=== PATIENT | male | born 1965 | race Caucasian/White ===

== ENCOUNTER 2024-08-11 09:05 | Day surgery (SDC) | payer BC, SELFPAY ==
[2024-08-11 09:58] VITALS: BP 128/85; PULSE 70; RESP 12; TEMP 36.2; O2SAT 97
[2024-08-11] MEDS: LACTATED RINGERS 1,000 ML 42 ML IV (10:22)
--- NOTE | 2024-08-11 10:35 | PM.HP.1 ---
History of Present Illness History of Present Illness Date Patient Seen: 08/11/24 Time Patient Seen: 10:38 Chief complaint: Colonoscopy Narrative: Last scope was over 10 years ago. No symptoms or family history PFSH Medical History KANDACE (obstructive sleep apnea) Kidney stones (~1983) Hemorrhoid (~2003) Former tobacco use Obesity Pulmonary nodule Depression Mixed hyperlipidemia (~2009) Elevated blood pressure reading Surgical History Anesthesia [place] teeth removed History of cataract extraction Family History Father Diabetes mellitus History of heart disease Mental health problem Stroke Obesity Mother Hypertension Mental health problem Grandfather Hypertension Grandmother Hyperlipidemia Grandfather History of heart disease Stroke Grandmother Diabetes mellitus History of heart disease Hypertension Social History Smoking Status: Former smoker alcohol intake: current additional social history: OI for 1 yr, [address] acres in [place]. was here during covid. lives with and 12 yo. selling house in [place] consulting: environmental advocacy - [employer] alcohol 1-3 /week tobacco: quit in 2018 -- 35 pack years. hikes: 2 miles or more per day, rowing machine, bikes veggies every day. PSHX cataracts PMHX depression- [facility] for lung nodules -- GW thought he had cancer -- 2022 BMI - interested in GLP-1 high cholesterol: on statin MOM has HTN -- dad had CVA PGF had CVA MGF MN MU MN D - DM2 S - ? no FHX CA nodule depression 03/2024 Meds Home Medications and Allergies Home Medications Medication Instructions Recorded Confirmed Type sodium,potassium,mag sulfates 17.5 See Rx Instructions PO .COMPLEX 04/25/24 07/04/24 Rx gram-3.13 gram-1.6 gram oral soln #354 mL (Suprep Bowel Prep Kit) atorvastatin 20 mg tablet 20 mg PO DAILY for cholesterol. 05/29/24 08/11/24 Rx prevents heart attack and stroke #90 tabs bupropion HCl 150 mg 24 hr tablet, 150 mg PO QAM take with 300mg 06/16/24 08/11/24 Rx extended release tablet #90 tabs bupropion HCl 300 mg 24 hr tablet, 300 mg PO DAILY take with 150mg 06/16/24 07/04/24 Rx extended release tablet #90 tabs Allergies Allergy/AdvReac Type Severity Reaction Status Date / Time No Known Drug Allergies Allergy Verified 08/11/24 09:55 Review of Systems Review of Systems ROS: Yes All systems reviewed with the patient and are negative except as otherwise documented Exam Vital Signs (past 8 hours): - 08/11/24 09:58 Temperature 97.1 F L Pulse Rate 70 Respiratory Rate 12 Blood Pressure 128/85 Pulse Oximetry 97 Oxygen Delivery Method Room Air Oxygen Delivery Method Room Air Const General: cooperative, healthy appearing and comfortable HENKY Head: normocephalic and atraumatic Eyes Periorbital: periorbital findings normal Sclera: sclerae normal Neck Neck: trachea midline and No JVD Resp Effort & Inspection: normal respiratory effort and able to speak in complete sentences Cardio Rate: regular rate Rhythm: regular rhythm GI Palpation: soft and No tender Skin General: turgor normal and No atrophy Neuro General: patient alert, patient awake and patient oriented x3 Cognition: normal cognition Psych Mental Status: mental status grossly normal Affect: normal affect Judgment: judgment good Assessment & Plan Assessment & Plan narrative: Colon cancer screening [id number] with anesthesia Time-Based Coding :: [TOTAL MINUTES] spent with patient and on the chart (including review of chart, obtaining history, exam, reviewing outside data, placing orders, documenting exam and treatment plan, and counseling patient) on [DATE].
--- NOTE | 2024-08-11 10:41 | PM.OP.COLON ---
Operative Date/Time/Diagnoses Date of procedure: 08/11/24 Time of procedure: 10:41 Pre-op diagnosis: colon cancer screening Post-op diagnosis: same Procedure & Clinicians Study performed: colonoscopy with anesthesia Same procedure as scheduled: Yes Indications: colon cancer screening Surgeon: Sandy Waller Procedure Notes Procedure in detail: Preop diagnosis: Colon cancer screening Postop diagnosis: Same Operative procedure: Colonoscopy with anesthesia Surgeon: Mali Waller MD Findings: Large diverticuli of the descending colon. No polyps identified Procedure: Patient placed in lateral position. Rectal exam performed showing normal tone no masses. Colonoscope inserted into the rectum and advanced ileocecal valve with minimal difficulty. Insufflation extraction scope including retroflex had the above findings. Impression: Diverticulosis of the descending colon. No polyps identified. Plan: Repeat colonoscopy in 10 years unless otherwise indicated by change in clinical condition Findings: divertiulosis Specimen(s): none sent Complications: none Post-procedure Recommendations: Colonoscopy in 10 years Follow up: as needed Disposition: PACU
[2024-08-11 11:01] VITALS: BP 127/74; PULSE 76; RESP 13; TEMP 36.7; O2SAT 96
[2024-08-11 11:06] VITALS: BP 118/76; PULSE 71; RESP 12; O2SAT 96
[2024-08-11 11:11] VITALS: BP 121/73; PULSE 74; RESP 14; O2SAT 97
[2024-08-11 11:16] VITALS: BP 115/79; PULSE 73; RESP 16; TEMP 36.7; O2SAT 96
== END 2024-08-11 11:26 | disposition home or self-care (01) ==
PROVIDERS: PCP Family Medicine; Referring Provider Surgery; Visit Provider Surgery
PROC: 0DJD8ZZ Inspection of Lower Intestinal Tract, Via Natural or Artificial Opening Endoscopic (ICD-10-PCS; CPT 45378; principal; 2024-08-11 10:45)
DX: Z12.11 Encounter for screening for malignant neoplasm of colon (principal); K57.30 Diverticulosis of large intestine without perforation or abscess without bleeding
CPT/HCPCS: 45378; J2704

== ENCOUNTER → 2025-04-26 09:57 | Outpatient (CLI) | payer BC, SELFPAY ==
[2025-04-26 19:43] LABS: Hematocrit 34.9 % (41-53); Hemoglobin 11.6 g/dL (13.5-17.5); Mean Corpuscular HGB Conc 33.2 % (30-36); Mean Corpuscular Hemoglobin 34.4 PG (26-34); Mean Corpuscular Volume 103.8 fL (80-100); Platelet Count 178 X10^3/uL (150-400); Red Blood Cell Count 3.36 X10^6/uL (4.5-5.9)
[2025-04-26 19:55] LABS: Alanine Aminotransferase 28 IU/L (<50); Albumin 4.3 g/dL (3.5-5.0); Alkaline Phosphatase 73 U/L (38-126); Aspartate Aminotransferase 25 IU/L (17-59); BUN Creatinine Ratio 22.1 (6-22); Bilirubin Total 0.7 mg/dL (0.2-1.3); Blood Urea Nitrogen 17 mg/dL (9-20); Calcium 8.8 mg/dL (8.4-10.2); Carbon Dioxide 21 mmol/L (22-32); Chloride 106 mmol/L (98-107); Cholesterol 150 mg/dL (140-199); Estimated Glomerular Filt Rate > 60 mL/min (>60); Globulin 2.1 g/dL (1.7-4.1); Glucose 95 mg/dL (70-99); HDL Cholesterol 30 mg/dL (40-60); HEMOLYSIS < 15 (0-50); LDL Cholesterol Calculated 84 mg/dL (<100); Potassium 4.2 mmol/L (3.4-5.1); Sodium 137 mmol/L (137-145); Total Protein 6.4 g/dL (6.3-8.2); Triglycerides 180 mg/dL (35-150)
[2025-04-26 20:16] LABS: Add Manual Diff / Slide Review YES
[2025-04-26 20:36] LABS: Neutrophils Absolute Manual 1200 /uL (3000-5900); Total Cells Counted 100
[2025-04-26 20:37] LABS: Anisocytosis 1+; Macrocytosis 1+
[2025-04-26 20:38] LABS: Smudge Cells 2+
== END ==
PROVIDERS: PCP Family Medicine; Visit Provider Family Medicine
DX: E66.9 Obesity, unspecified (principal); I10 Essential (primary) hypertension; Z12.5 Encounter for screening for malignant neoplasm of prostate
CPT/HCPCS: 80053; 80061; 85007; 85025; G0103

== ENCOUNTER → 2025-05-01 08:37 | Outpatient (CLI) | payer BC, SELFPAY ==
[2025-05-01 19:04] LABS: Hematocrit 37.8 % (41-53); Hemoglobin 12.2 g/dL (13.5-17.5); Mean Corpuscular HGB Conc 32.4 % (30-36); Mean Corpuscular Hemoglobin 34.1 PG (26-34); Mean Corpuscular Volume 105.3 fL (80-100); Platelet Count 217 X10^3/uL (150-400); Red Blood Cell Count 3.59 X10^6/uL (4.5-5.9); Red Cell Distribution Width 14.9 % (11.6-14.8)
[2025-05-01 19:59] LABS: Total Cells Counted 100
[2025-05-01 20:00] LABS: Macrocytosis 1+; Reactive Lymphocytes 2+; Smudge Cells 1+
[2025-05-01 20:25] LABS: Neutrophils Absolute Manual 1348 /uL (3000-5900); White Blood Cell Count 67.4 X10^3/uL (4.5-11.0)
== END ==
PROVIDERS: PCP Family Medicine; Visit Provider Family Medicine
DX: D72.820 Lymphocytosis (symptomatic) (principal)
CPT/HCPCS: 85025

== ENCOUNTER → 2025-06-11 09:14 | Outpatient (CLI) | payer BC, SELFPAY ==
[2025-06-11 10:37] LABS: Hematocrit 32.8 % (41-53); Hemoglobin 11.1 g/dL (13.5-17.5); Mean Corpuscular HGB Conc 33.7 % (30-36); Mean Corpuscular Hemoglobin 35.4 PG (26-34); Mean Corpuscular Volume 104.8 fL (80-100); Platelet Count 149 X10^3/uL (150-400)
[2025-06-11 10:58] LABS: Add Manual Diff / Slide Review YES
[2025-06-11 12:03] LABS: Atypical Lymphocytes Percent 3.0 %; Lymphocytes Percent Manual 96.0 % (25-45); Neutrophils Absolute Manual 517 /uL (3000-5900); Segmented Neutrophils Percent 1.0 % (38-70); Total Cells Counted 100
[2025-06-11 12:10] LABS: Anisocytosis 1+; Macrocytosis 1+; Smudge Cells 2+
== END ==
PROVIDERS: PCP Family Medicine; Referring Provider Registered Nurse; Visit Provider Registered Nurse
DX: D70.8 Other neutropenia (principal)
CPT/HCPCS: 36415; 85007; 85025

== ENCOUNTER → 2025-06-20 09:18 | Outpatient (CLI) | payer BC, SELFPAY ==
[2025-06-20 09:41] LABS: Hematocrit 33.6 % (41-53); Hemoglobin 11.3 g/dL (13.5-17.5); Mean Corpuscular HGB Conc 33.7 % (30-36); Mean Corpuscular Hemoglobin 35.2 PG (26-34); Mean Corpuscular Volume 104.5 fL (80-100); Platelet Count 168 X10^3/uL (150-400)
[2025-06-20 09:57] LABS: Add Manual Diff / Slide Review YES
[2025-06-20 10:39] LABS: Atypical Lymphocytes Percent 17.0 %; Lymphocytes Percent Manual 78.0 % (25-45); Monocytes Percent Manual 1.0 % (2-11); Neutrophils Absolute Manual 2884 /uL (3000-5900); Segmented Neutrophils Percent 4.0 % (38-70); Total Cells Counted 100
[2025-06-20 10:49] LABS: Anisocytosis 1+; Macrocytosis 1+
[2025-06-20 10:50] LABS: Smudge Cells 2+
== END ==
LOC: LAB 09:20
PROVIDERS: PCP Family Medicine; Referring Provider Registered Nurse; Visit Provider Registered Nurse
DX: C91.01 Acute lymphoblastic leukemia, in remission (principal)
CPT/HCPCS: 36415; 85007; 85025

== ENCOUNTER → 2025-09-27 10:38 | Outpatient (CLI) | payer BC, SELFPAY ==
[2025-09-27 11:46] LABS: Add Manual Diff / Slide Review NO; Hematocrit 44.0 % (41-53); Hemoglobin 14.8 g/dL (13.5-17.5); Lymphocytes Absolute Auto 2500 /uL (1100-4500); Mean Corpuscular HGB Conc 33.6 % (30-36); Mean Corpuscular Hemoglobin 32.0 PG (26-34); Mean Corpuscular Volume 95.0 fL (80-100); Platelet Count 203 X10^3/uL (150-400)
== END ==
PROVIDERS: PCP Family Medicine; Referring Provider Physician Assistant; Visit Provider Physician Assistant
DX: C91.10 Chronic lymphocytic leukemia of B-cell type not having achieved remission (principal)
CPT/HCPCS: 85025